=== PATIENT | female | born 2000 | race Caucasian/White ===

== ENCOUNTER 2019-04-28 11:48 | Emergency (ER) | payer OTHER ==
[~2019-04-28] VITALS: Ht 157.5 cm; Wt 60.3 kg
[2019-04-28 12:06] VITALS: Ht 157.5 cm; Wt 60.3 kg
[2019-04-28 13:30] VITALS: BP 139/71
== END 2019-04-28 13:33 | disposition home or self-care (01) ==
LOC: ED 11:48
DX: N39.0 Urinary tract infection, site not specified (principal); Z98.890 Other specified postprocedural states; Z91.013 Allergy to seafood

== ENCOUNTER 2019-05-06 12:46 | Emergency (ER) | payer OTHER ==
[~2019-05-06] VITALS: Ht 157.5 cm; Wt 61.2 kg
[2019-05-06 12:48] VITALS: Ht 157.5 cm; Wt 61.2 kg
[2019-05-06 16:03] VITALS: BP 131/69
== END 2019-05-06 16:03 | disposition home or self-care (01) ==
LOC: ED 12:46
DX: N76.0 Acute vaginitis (principal); Z98.890 Other specified postprocedural states; Z91.013 Allergy to seafood
CPT/HCPCS: 87491; 87591; J0696; J1885

== ENCOUNTER 2019-08-04 17:24 | Emergency (ER) | payer OTHER ==
[~2019-08-04] VITALS: Ht 157.5 cm; Wt 63.0 kg
[2019-08-04 17:28] VITALS: Ht 157.5 cm; Wt 63.0 kg
[2019-08-04 17:56] VITALS: BP 108/68
== END 2019-08-04 17:56 | disposition home or self-care (01) ==
LOC: ED 17:24
DX: R09.89 Other specified symptoms and signs involving the circulatory and respiratory systems (principal); Z88.8 Allergy status to other drugs, medicaments and biological substances